=== PATIENT | male | born 1970 | race Two or more races ===

== ENCOUNTER → 2024-06-16 | Emergency (ER) | payer OTHER ==
[~2024-06-16] VITALS: Ht 177.8 cm; Wt 75.7 kg
== END | disposition home or self-care (01) ==
LOC: ER 06:41
DX: T16.2XXA Foreign body in left ear, initial encounter (principal); W44.8XXA Other foreign body entering into or through a natural orifice, initial encounter; Y93.89 Activity, other specified; Y92.89 Other specified places as the place of occurrence of the external cause; Y99.9 Unspecified external cause status